=== PATIENT | male | born 1995 | race Caucasian/White ===

== ENCOUNTER → 2016-12-06 | Outpatient (CLI) | payer OTHER ==
[~2016-12-06] MED LIST: IBUP-1050 PO; PSYL55.43 PO; WHEATAB2 PO
== END ==
LOC: C.LABSPEC 13:31
PROVIDERS: ATTEND Urology
DX: N20.0 Calculus of kidney (principal)

== ENCOUNTER → 2017-02-20 | Outpatient (CLI) | payer OTHER ==
--- NOTE | 2017-02-20 09:34 | DIAGNOSTIC IMAGING REPORT ---
KUB CLINICAL HISTORY: Nephrolithiasis. FINDINGS: 2 AP supine abdominal radiographs are correlated with abdominal CT dated 09/08/2015. There is a nonobstructed abdominal bowel gas pattern. There are at least 3 small nonobstructing left renal calculi which measure up to 3 mm. No right renal calculi are identified and there is no radiographic evidence of ureteral stone. The bony structures appear intact. IMPRESSION: Small nonobstructing left renal calculi as above. Electronically signed by: Homar Love M.D. 02/20/2017 9:33 AM Dictated Date/Time: 02/20/2017 9:31 AM
== END | disposition home or self-care (01) ==
LOC: C.RAD 09:05
PROVIDERS: ATTEND Urology
DX: N20.0 Calculus of kidney (principal)

== ENCOUNTER → 2017-03-15 | Outpatient (CLI) | payer OTHER ==
[2017-03-15 13:38] LABS: BLOOD UREA NITROGEN 9 mg/dl (7-18); BUN/CREATININE RATIO 8.8 (10-20); CALCIUM 9.5 mg/dl (8.5-10.1); CARBON DIOXIDE 28 mmol/L (21-32); CHLORIDE 106 mmol/L (98-107); CREATININE 0.98 mg/dl (0.60-1.40); GLUCOSE 88 mg/dl (70-99); PHOSPHORUS 2.8 mg/dl (2.5-4.9); POTASSIUM 3.9 mmol/L (3.5-5.1); SODIUM 139 mmol/L (136-145); URIC ACID 4.3 mg/dl (2.6-7.2)
== END | disposition home or self-care (01) ==
LOC: C.LAB1850 11:28
PROVIDERS: ATTEND Internal Medicine Nephrology
DX: N20.0 Calculus of kidney (principal); E55.9 Vitamin D deficiency, unspecified

== ENCOUNTER → 2017-08-14 | Outpatient (CLI) | payer OTHER ==
--- NOTE | 2017-08-14 13:53 | DIAGNOSTIC IMAGING REPORT ---
KUB CLINICAL HISTORY: N20.0 Nephrolithiasis COMPARISON STUDY: 02/20/2017 FINDINGS: The bowel gas pattern is unremarkable. The renal shadows are partially obscured by overlying bowel gas and fecal material. Tiny bilateral intrarenal calculi are suspected. There are no calcifications suspicious for ureteral calculi. IMPRESSION: 1. No evidence of pathologic bowel dilatation 2. Bilateral nephrolithiasis Electronically signed by: Phil Gonzalez M.D. 08/14/2017 1:52 PM Dictated Date/Time: 08/14/2017 1:51 PM
== END | disposition home or self-care (01) ==
LOC: C.RAD 13:27
PROVIDERS: ATTEND Urology
DX: N20.0 Calculus of kidney (principal)

== ENCOUNTER 2019-06-20 16:30 | Inpatient (IN) ==
[2019-06-20] MEDS ORDERED: SODIUM CHLORIDE 0.9% 1000ML 1,000 ML IV ONE (16:41)
[2019-06-20] MEDS ORDERED: KETOROLAC TROMETHAMINE 15 MG/ML VIAL IV STA ×2 (16:41→17:30)
[2019-06-20] MEDS ORDERED: ONDANSETRON INJ 2 MG/ML 2 ML VIAL IV STA (16:41)
[2019-06-20 17:07] LABS: Basophils # (auto) 0.03 K/uL (0-0.2); Basophils % (auto) 0.2 %; Eosinophils # (auto) 0.01 K/uL (0-0.5); Eosinophils % (auto) 0.1 %; Hematocrit (blood only) 41.9 % (42-52); Immature Granulocytes # (auto) 0.04 K/uL (0.00-0.02); Immature Granulocytes % (auto) 0.3 %; Lymphocytes % (auto) 10.2 %; Mean Corpuscular Hemoglobin 30.5 pg (25-34); Mean Corpuscular Hgb Conc 35.8 g/dL (32-36); Mean Corpuscular Volume 85.3 fL (80-100); Mean Platelet Volume 8.8 fL (7.4-10.4); Monocytes # (auto) 0.37 K/uL (0.11-0.59); Monocytes % (auto) 2.4 %; Neutrophils # (auto) 13.67 K/uL (1.4-6.5); Neutrophils % (auto) 86.8 %; Platelet Count 305 K/uL (130-400); RDW Standard Deviation 40.7 fL (36.4-46.3); Red Blood Count 4.91 M/uL (4.7-6.1); White Blood Count 15.72 K/uL (4.8-10.8)
[2019-06-20 17:12] LABS: Appearance Urine Turbid (Clear); Bacteria Urine Automated Negative (Negative); Blood Urine 3+ (Negative); Epithelial Cell Urine Auto 20-30 /lpf (0-5); Glucose Urine UA Negative (Negative); Ketones Urine Trace (Negative); Leukocyte Esterase Urine 1+ (Negative); Nitrite Urine Negative (Negative); Protein Urine 2+ (Negative); RBC Urine Automated >30 /hpf (0-4); Specific Gravity Urine 1.029 (1.000-1.030); Urobilinogen Urine Negative (Negative)
[2019-06-20 17:13] LABS: Color Urine Dark Yellow
[2019-06-20 17:15] LABS: Bilirubin Urine Negative (Negative); Ictotest Urine Negative (Negative)
--- NOTE | 2019-06-20 17:35 | CT Scan Report ---
CT OF THE ABDOMEN AND PELVIS WITHOUT CONTRAST CLINICAL HISTORY: Right flank pain. Evaluate for stone. COMPARISON STUDY: CT of the abdomen and pelvis September 08, 2015. KUB September 20, 2018. TECHNIQUE: Axial images of the abdomen and pelvis were obtained without IV contrast. Images were revi ewed in the axial, sagittal, and coronal planes. Automated exposure control was utilized for the farrukh dy. A dose lowering technique was utilized adhering to the principles of ALARA. FINDINGS: Lung bases are unremarkable. A 7 mm x 5 mm proximal right ureteral calculus results in mild to moderate right hydronephrosis. A few punctate right renal calculi are noted. 2 calculi within the lower pole of the left kidney measure up to 6 mm. There are no left ureteral calculi. Evaluation of the remainder of the abdomen and pelvis is suboptimal on this unenhanced examination. The liver, sple en, adrenal glands and pancreas are normal. There is no evidence for a bowel obstruction. The appendi x is at the upper limits of normal for caliber and contains hyperdense material. However, there is no evidence for acute appendicitis. No lymphadenopathy is present. No suspicious osseous lesions are no hermann. 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 IMPRESSION: 1. 7 mm x 5 mm proximal right ureteral calculus which results in mild to moderate right hydronephrosi s. 2. Punctate right renal calculi. Two left renal calculi measuring up to 6 mm. Electronically signed by: Abad Acosta M.D. 06/20/2019 5:34 PM
[2019-06-20 17:41] LABS: Albumin Level 4.5 gm/dl (3.4-5.0); BUN Creatinine Ratio 12.7 (10-20); Bilirubin Direct 0.1 mg/dl (0-0.2); Calcium 9.4 mg/dl (8.5-10.1); Creatinine Clr Calc Pharmacy 89.3 ml/min; Est GFR (African American) 107.6; Est GFR (Non-African American) 92.8; Potassium 3.7 mmol/L (3.5-5.1)
[2019-06-20] MEDS ORDERED: MoRPHine SULFATE 4 MG/ML 1 ML CARP\\VIAL IV STA (17:42)
[2019-06-20 17:43] LABS: Bilirubin,Total 0.5 mg/dl (0.2-1); Total Protein 8.4 gm/dl (6.4-8.2)
--- NOTE | 2019-06-20 17:59 | Emergency Department Note ---
Entered by Dinorah Brian acting as a scribe for History of Present Illness General Chief complaint: Flank Pain Stated complaint: ABDOMINAL PAIN, RIGHT SIDE Time Seen by Provider: 06/20/19 16:37 History of Present Illness Provider complaint: right sided flank pain Onset (ago): hour(s) 2 Location: abdomen (flank) and right Radiation: back Pain Consistency: + other (episode) Maximum Pain Intensity: 8 Associated symptoms: + denies other symptoms (hematuria, dysuria) and + other (initially thought the pain was from gas, but the pain has worsened exponentially, dizzy, history of left sided kidney stones); no nausea/vomiting The patient is a 24 year old male who presents to the ED with complaints of an episodes of right sided flank pain that started 2 hours ago. The patient states that his pain radiates slightly to his back. The patient states that he initially thought the pain was from gas, but when the pain persisted and wor sened he decided to come to the ED. The patient states that he also feels dizzy. Per father, the patient has a history of left sided kidney stones. The patient denies nausea, vomiting hematuria and dysuria. Home Medications Home Medications Medication Instructions Recorded Confirmed Type potassium citrate 15 meq PO QAM 06/20/19 06/20/19 History Allergies Allergy/AdvReac Type Severity Reaction Status Date / Time No Known Allergies Allergy Unverified 06/20/19 17:48 Past Med/Surg History Social History Preferred Language: German Communication Ability: Effective Bid Writer Required: No Beliefs That Will Affect Care: None Current Living Situation: Parent Feels Safe at Home: Yes Smoking Status: Never smoker Second Hand Exposure: No ; Hx Alcohol Use: No Hx Substance Use: No Review of Systems See HPI for pertinent positives & negatives. and A total of 10 systems reviewed and were otherwise negative Physical Exam Vital Signs Vital Signs - 24 hr 06/20/19 16:32 06/20/19 17:51 Temperature 36.7 C Temperature Source Oral Sepsis Recent Fever Within 48 Hours No Sepsis New/Unexplained Change in Mental Status No Sepsis Action Taken by Nursing No Action Required Pulse Rate 86 Pulse Rate [Finger] 74 Pulse Rhythm [Finger] Regular Pulse Strength [Finger] Normal Respiratory Rate 20 16 Respiratory Effort / Characteristics Non-Labored Spontaneous Respiratory Depth Normal Respiratory Pattern Regular Blood Pressure 112/70 Blood Pressure [Right Arm] 124/69 Blood Pressure Mean 84 Blood Pressure Mean [Right Arm] 87 Blood Pressure Position [Right Arm] Lying Pulse Oximetry 97 98 Oxygen Delivery Method Room Air Room Air GENERAL: He is oriented to person, place, and time. He appears well-developed and well-nourished. He does not appear distressed. HENT: Exam performed. - Head: Normocephalic and atraumatic. - Right Ear: External ear normal. No mastoid tenderness. - Left Ear: External ear normal. No mastoid tenderness. - Mouth/Throat: The oropharynx is clear and moist. No trismus in the jaw. No dental abscesses or uvula swelling. No oropharyngeal exudate or tonsillar abscesses. EYES: Conjunctivae and EOM are normal. Pupils are equal, round, and reactive to light. Right eye exhibits no discharge. Left eye exhibits no discharge. No scleral icterus. NECK: Normal range of motion. Neck supple. No JVD present. No spinous process tenderness present. No carotid bruit present. No rigidity. No tracheal deviation and normal range of motion present. No Brudzinski's sign and no Kernig's sign noted. CV: Normal rate, regular rhythm, normal heart sounds and intact distal pulses. There is no peripheral edema. Palpable radial pulses bue. PULM/CHEST: Effort normal and breath sounds normal. No respiratory distress. No stridor. He has no wheezes. He has no rales. - Chest Wall: He exhibits no tenderness. ABD: The abdomen is soft. Bowel sounds are normal. He has no distension. No mass is present. RLQ tenderness. There is no rebound, no guarding, no Correia's sign and no tenderness at McBurney's point. Rovsig negative. MUSC/SKEL: Normal range of motion. There is no peripheral edema, tenderness or deformity. Right sided CVA tenderness. LYMPH: No cervical adenopathy. NEURO: He is alert and oriented to person, place, and time. He has normal strength. No cranial nerve deficit or sensory deficit. Coordination and gait normal. GCS eye subscore is 4. GCS verbal subscore is 5. GCS motor subscore is 6. Cerebellar tests wnl. SKIN: Skin is warm and dry. He is not diaphoretic. PSYCH: He has a normal mood and affect. Behavior is normal. Judgment and thought content normal. Course 1638: Past medical records reviewed. The patient was evaluated in room A04B. A complete history and physical exam was performed. 1756: Vital signs stable. Patient still having pain despite 2 doses of Toradol, will give Morphine. Imaging found 7x 5 mm right sided kidney stone. Labs show mild leukocytosis. Urine sample is contaminated, does not have any nitrites or bacteria present though. Dr. Bates agrees to admit the patient for pain control and stent placement. Patient will be admitted to Dr. Foster for further evaluation. Consultations Consultation #1: I discussed the patient's case with Dr. Bates- Urology. He is agreeable for the plan for admission. Time: 17:44 Consultation #2: I discussed the patient's case with Dr. Foster- [facility] Hospitalist. She will evaluate the patient for further management. Time: 17:55 Administered Medications Discontinued Medications Sodium Chloride (Nss 1000ml) 1,000 mls @ 999 mls/hr IV .Q1H1M ONE Stop: 06/20/19 17:41 Last Infusion: 06/20/19 17:50 Dose: 0 mls/hr Documented by: [id number] Admin: 06/20/19 16:50 Dose: 999 mls/hr Documented by: [id number] Ketorolac Tromethamine (Toradol) 15 mg IV NOW STA Stop: 06/20/19 16:42 Last Admin: 06/20/19 16:50 Dose: 15 mg Documented by: [id number] Ketorolac Tromethamine (Toradol) 15 mg IV NOW STA Stop: 06/20/19 17:31 Last Admin: 06/20/19 17:37 Dose: 15 mg Documented by: [id number] Morphine Sulfate (Morphine Sulfate) 4 mg IV NOW STA Stop: 06/20/19 17:43 Last Admin: 06/20/19 17:50 Dose: 4 mg Documented by: [id number] Ondansetron HCl (Zofran) 4 mg IV NOW STA Stop: 06/20/19 16:42 Last Admin: 06/20/19 16:50 Dose: 4 mg Documented by: [id number] Medical Decision Making Medical Records Attestation: I reviewed the patient's medical records. Home Medications Current Medication List: was personally reviewed by me Laboratory Data Attestation: I reviewed the patient's lab results. Result diagrams: 06/20/19 16:47 06/20/19 16:47 Lab Results 06/20/19 06/20/19 06/20/19 Range/Units 16:45 16:47 16:47 WBC 15.72 H (4.8-10.8) K/uL RBC 4.91 (4.7-6.1) M/uL Hgb 15.0 (14.0-18.0) g/dL Hct 41.9 L (42-52) % MCV 85.3 (80-100) fL MCH 30.5 (25-34) pg MCHC 35.8 (32-36) g/dL RDW Std Deviation 40.7 (36.4-46.3) fL RDW Coeff of Power 13.0 (11.5-14.5) % Plt Count 305 (130-400) K/uL MPV 8.8 (7.4-10.4) fL Immature Gran % (Auto) 0.3 % Neut % (Auto) 86.8 % Lymph % (Auto) 10.2 % Alfalfa % (Auto) 2.4 % Eos % (Auto) 0.1 % Baso % (Auto) 0.2 % Immature Gran # (Auto) 0.04 H (0.00-0.02) K/uL Neut # (Auto) 13.67 H (1.4-6.5) K/uL Lymph # (Auto) 1.60 (1.2-3.4) K/uL Alfalfa # (Auto) 0.37 (0.11-0.59) K/uL Eos # (Auto) 0.01 (0-0.5) K/uL Baso # (Auto) 0.03 (0-0.2) K/uL Sodium 137 (136-145) mmol/L Potassium 3.7 (3.5-5.1) mmol/L Chloride 106 (98-107) mmol/L Carbon Dioxide 27 (21-32) mmol/L Anion Gap 4.0 (3-11) BUN 14 (7-18) mg/dl Creatinine 1.10 (0.6-1.4) mg/dl Est Cr Clr Drug Dosing 89.3 ml/min Est GFR ( Amer) 107.6 Est GFR (Non-Af Amer) 92.8 BUN/Creatinine Ratio 12.7 (10-20) Glucose 109 H (70-99) mg/dl Calcium 9.4 (8.5-10.1) mg/dl Total Bilirubin 0.5 (0.2-1) mg/dl Direct Bilirubin 0.1 (0-0.2) mg/dl AST 13 L (15-37) U/L ALT 21 (12-78) U/L Alkaline Phosphatase 52 (45-117) U/L Total Protein 8.4 H (6.4-8.2) gm/dl Albumin 4.5 (3.4-5.0) gm/dl Lipase 110 (73-393) U/L Urine Color Dark Yellow Urine Appearance Turbid A (Clear) Urine pH 6.0 (4.5-7.5) Ur Specific [place] 1.029 (1.000-1.030) Urine Protein 2+ H (Negative) Urine Glucose (UA) Negative (Negative) Urine Ketones Trace H (Negative) Urine Blood 3+ H (Negative) Urine Nitrite Negative (Negative) Urine Bilirubin Negative (Negative) Urine Urobilinogen Negative (Negative) Ur Leukocyte Esterase 1+ H (Negative) Urine WBC (Auto) 5-10 H (0-5) /hpf Urine RBC (Auto) >30 H (0-4) /hpf U Hyaline Cast (Auto) 1-5 (0-5) /lpf U Epithel Cells (Auto) 20-30 H (0-5) /lpf Urine Bacteria (Auto) Negative (Negative) Imaging Data Radiologist's Impression: Radiology results as stated below per my review and the radiologist's interpretation: CT OF THE ABDOMEN AND PELVIS WITHOUT CONTRAST CLINICAL HISTORY: Right flank pain. Evaluate for stone. COMPARISON STUDY: CT of the abdomen and pelvis September 08, 2015. KUB September 20, 2018. TECHNIQUE: Axial images of the abdomen and pelvis were obtained without IV contrast. Images were reviewed in the axial, sagittal, and coronal planes. Automated exposure control was utilized for the study. A dose lowering technique was utilized adhering to the principles of ALARA. FINDINGS: Lung bases are unremarkable. A 7 mm x 5 mm proximal right ureteral calculus results in mild to moderate right hydronephrosis. A few punctate right renal calculi are noted. 2 calculi within the lower pole of the left kidney measure up to 6 mm. There are no left ureteral calculi. Evaluation of the ruperto barbie of the abdomen and pelvis is suboptimal on this unenhanced examination. The liver, spleen, adrenal glands and pancreas are normal. There is no evidence for a bowel obstruction. The appendix is at the upper limits of normal for caliber and contains hyperdense material. However, there is no evidence for acute appendicitis. No lymphadenopathy is present. No suspicious osseous lesions are noted. 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 IMPRESSION: 1. 7 mm x 5 mm proximal right ureteral calculus which results in mild to moderate right hydronephrosis. 2. Punctate right renal calculi. Two left renal calculi measuring up to 6 mm. Electronically signed by: Abad Acosta M.D. 06/20/2019 5:34 PM Blood Pressure Blood Pressure Findings: Elevated blood pressure Blood Pressure Disposition: further management by hospitalist PENG Narrative Vital signs stable. Patient still having pain despite 2 doses of Toradol, will give Morphine. Imaging found 7x 5 mm right sided kidney stone. Labs show mild leukocytosis. Urine sample is contaminated, does not have any nitrites or bacteria present though. Dr. Bates agrees to admit the patient for pain control and stent placement. Patient will be admitted to Dr. Foster for further evaluation. Impression & Plan Kidney stone on right side, Hydroureteronephrosis Discharge Plan Visit Data Chief Complaint: Flank Pain Stated Complaint: ABDOMINAL PAIN, RIGHT SIDE ED Provider: Vince Ceron Discharge Problem: Kidney stone on right side, Hydroureteronephrosis Patient Disposition: Being Evaluated by Hospitalist Forms Stand Alone Forms: My [facility], Important Visit Information Prescriptions Prescriptions: No Action potassium citrate 15 mEq tablet extended release 15 meq PO QAM RF: 0 Referrals Referrals: Clark Guaman DO [Primary Care Provider] - The scribe's documentation has been prepared under my direction and personally reviewed by me in its entirety. I confirm that the note above accurately reflects all work, treatment, procedures, and medical decision making performed by me.
--- NOTE | 2019-06-20 18:19 | History & Physical Report ---
Date of Service June 20, 2019 Assessment & Plan (1) Kidney stone on right side: Admit to PCU on telemetry Vital signs every 4 hours IV fluid hydration with normal saline 125 cc/h Pain management for proximal ureteral calculus Started ceftriaxone 1 g IV every 24 hours for urinary tract infection DVT prophylaxis with ambulation 3 times daily and SCDs and teds Due to possibility that patient may have stent placed if this calculus does not pass Consult urology Full code Present on Admission?: Yes (2) Hydroureteronephrosis: As above Present on Admission?: Yes History of Present Illness Chief Complaint: Right flank pain Primary Care Provider: Clark Guaman DO Patient is a 24 years old male with past medical history of spinning bifid syndrome presents to the emergency room with a complaint of right flank pain that started 2 hours ago. Patient states that his pain radiates slightly to his back. Patient states that he had in the past history of kidney stones. Patient reports that nothing helps his pain and in the beginning he was thinking that he has some pain caused by the gas in his bowel but then he realized that his urine was pink as well and he started to realize that this could be a kidney stone. Patient denies fever, chills, chest pain, shortness of breath, frequency, urgency. There is small amount amount of blood in patient's urine. Patient also said that he has some burning sensation on urination. Labs are reviewed which shows a white blood cell count of 15.72, hemoglobin 15 hematocrit 41.9, platelets of 305, sodium 137, potassium 3.7, chloride 106, BUN 14, creatinine 1.1, GFR 92.8, calcium 9.4, AST 13, ALT 21, alkaline phosphatase 52 albumin 4.5 lipase 110. Urine is positive for turbid appearance. There is 3+ blood in urine, leukocyte esterase 1+, WBC 5-10, RBC over 30, 20-30 epithelial cells negative for bacteria. CT abdomen pelvis shows 7 mm x 5 mm proximal right ureteral calculus with mild to moderate hydronephrosis. A few punctuate right renal calculi are noted. 2 calculi within the lower pole of the left kidney measuring up to 6 mm. Was made to admit patient to PCU telemetry for further evaluation of urolithiasis and treatment. Allergies Allergy/AdvReac Type Severity Reaction Status Date / Time No Known Allergies Allergy Unverified 06/20/19 17:48 Home Medications Home Medications Medication Instructions Recorded Confirmed Type potassium citrate 15 meq PO QAM 06/20/19 06/20/19 History Past Med/Surg History Medical History Anxiety Chronic headache Constipation Kidney stones Osteoarthritis Seasonal allergies Seizure QUESTIONABLE SEIZURE AFTER RECEIVING ANESTHESIA FOR WISDOM TOOTH EXTRACTION PER MOM? PREVIOUS SEIZURES OCCURRED DURING CHILDHOOD. NO MEDS. USED TO FOLLOW [facility] [place] Spina bifida NO SURGERY - NO PHYSICAL LIMITATIONS Surgical History History of anesthesia reaction QUESTIONABLE SEIZURE ACTIVITY AFTER RECEIVING ANESTHESIA FOR WISDOM TOOTH EXTRACTION PER MOM? MOM REPORTS EYES ROLLED TO BACK OF HIS HEAD/UNRESPONSIVE EPISODE AFTER COMING OUT OF ANESTHESIA. History of surgery on arm LEFT History of tooth extraction Family History Father Family history of reaction to anesthesia PONV Social History Preferred Language: Tamaz[place] Communication Ability: Effective Litigation Claim Representative Required: No Beliefs That Will Affect Care: None Current Living Situation: Parent Feels Safe at Home: Yes Smoking Status: Never smoker Second Hand Exposure: No ; Hx Alcohol Use: No Hx Substance Use: No Review of Systems Review of Systems: All systems reviewed & are unremarkable except as noted in HPI & below Physical Exam Constitutional: WD/WN, vitals as above well developed Eyes: PERRL, conjunctivae normal, anicteric sclerae ENMT: external ear and nose normal, oropharynx normal Neck: trachea midline, no thyromegaly Respiratory: normal respiratory effort, lungs clear to auscultation Cardiovascular: RRR, no murmur, no edema Gastrointestinal (Abdomen): Inspection/Auscultation: abdomen normal to inspection Right flank pain and tenderness on percussion and palpation Musculoskeletal: no cyanosis or clubbing, extremities motor strength 5/5 Skin: no rashes, warm and dry Neurologic: patellar DTR's 2+ bilat, sensation intact Psychiatric: A+Ox3, euthymic affect Lymphatic: no cervical or axillary lymphadenopathy Results & Data Vital Signs (Past 12 Hours) Vital Signs Temp Pulse Pulse Resp BP BP Pulse Ox 06/20/19 17:51 74 16 124/69 98 06/20/19 16:32 36.7 C 86 20 112/70 97 Code Status & VTE Plan Code Status Full code VTE Prophylaxis Plan VTE Prophylaxis will be ordered: No PG Care Time/CCT Total # of Minutes Spent Total Time Spent with Patient: Total time spent is greater than 50% in coordination of care (as documented) at patient's floor/unit and/or counseling patient:
[2019-06-20] MEDS ORDERED: POLYETHYLENE (MIRALAX) 17 GM PACK PO PRN (19:30)
[2019-06-20] MEDS ORDERED: KETOROLAC TROMETHAMINE 15 MG/ML VIAL IV PRN (19:30)
[2019-06-20] MEDS ORDERED: ONDANSETRON INJ 2 MG/ML 2 ML VIAL IV PRN (19:30)
[2019-06-20] MEDS ORDERED: ALUMINUM/MAGNESIUM SUSP 30 ML UDC PO PRN (19:30)
[2019-06-20] MEDS ORDERED: ACETAMINOPHEN 325 MG TAB PO PRN (19:30)
[2019-06-20] MEDS ORDERED: MAGNESIUM HYDROXIDE SUSP 30 ML UDC PO PRN (19:30)
[2019-06-20] MEDS ORDERED: OXYCODONE/ACETAMINOPHEN 5mg/325mg TAB PO PRN (19:30)
[2019-06-20] MEDS: SODIUM CHLORIDE 0.9% 1000ML 1,000 ML IV SCH (20:27)
[2019-06-20] MEDS ORDERED: cefTRIAXone SODIUM 1,000 MG in DEXTROSE 5% 50 ML IV SCH (21:00)
--- NOTE | 2019-06-21 01:43 | Urology Consultation ---
Date of Consultation June 21, 2019 Assessment & Plan (1) Kidney stone on right side: A/P 24-year-old male with a right proximal ureteral stone and colicky pain, currently improved. Findings reviewed with patient. If he is symptomatically improved we may be able to avoid acute surgical intervention. We will order a KUB for later this morning to check on stone progress and monitor symptoms. Should the patient's stone be making good progress with adequate pain control or if it has fallen back into the kidney would provide a p.o. diet and consider discharge home on oral pain medication with consideration of lithotripsy later in the week if necessary. Should the patient continue to have poorly controlled colicky pain on the right-hand side will consider cystoscopy, right retrograde pyelography and right ureteral stent placement to decompress his kidney. Patient and mother vocalized understanding of the treatment plan, queries were answered. N.p.o. for now. Thank you for allowing us to participate in this patient's acute care. Please contact our service with any questions or concerns. (2) Hydroureteronephrosis: History of Present Illness Reason for Consultation: Right proximal ureteral stone with colic Attending Physician: Orion Foster MD History of Present Illness 24-year-old male, known to our service, admitted due to right-sided flank pain from a proximal ureteral stone noted on CT scan imaging. Patient is resting comfortably in bed with his mother in the room. He reports he was in his usual state of health until he developed acute right flank pain and presented to the emergency room. Patient has been followed by Dr. Escobar as an outpatient and passed numerous stones without the need for surgical intervention. Per his report when lithotripsy had been considered in the past the stones had passed spontaneously obviating the need for intervention. He denies previous stent placement. He currently reports that his pain is improved after parenteral pain medication. He denies stone passage or collection since his admission. Inpatient and outpatient notes are reviewed. Urology consultation is requested to assist with the patient's acute care. CT scan images were personally reviewed demonstrating 2 left nonobstructive renal stones and a right proximal ureteral calculus. Allergies Allergy/AdvReac Type Severity Reaction Status Date / Time No Known Allergies Allergy Unverified 06/20/19 17:48 Home Medications Home Medications Medication Instructions Recorded Confirmed Type potassium citrate 15 meq PO QAM 06/20/19 06/20/19 History Patient History Medical History Anxiety Chronic headache Constipation Kidney stones Osteoarthritis Seasonal allergies Seizure QUESTIONABLE SEIZURE AFTER RECEIVING ANESTHESIA FOR WISDOM TOOTH EXTRACTION PER MOM? PREVIOUS SEIZURES OCCURRED DURING CHILDHOOD. NO MEDS. USED TO FOLLOW [facility] [place] Spina bifida NO SURGERY - NO PHYSICAL LIMITATIONS Surgical History History of anesthesia reaction QUESTIONABLE SEIZURE ACTIVITY AFTER RECEIVING ANESTHESIA FOR WISDOM TOOTH EXTRACTION PER MOM? MOM REPORTS EYES ROLLED TO BACK OF HIS HEAD/UNRESPONSIVE EPISODE AFTER COMING OUT OF ANESTHESIA. History of surgery on arm LEFT History of tooth extraction Family History Father Family history of reaction to anesthesia PONV Social History Preferred Language: Polish Communication Ability: Effective Communication Studies Professor Required: No Beliefs That Will Affect Care: None Current Living Situation: Significant Other Current Living Situation Comment: Girlfriend Feels Safe at Home: Yes Smoking Status: Never smoker Second Hand Exposure: No ; Hx Alcohol Use: No Hx Substance Use: No Review of Systems Constitutional: no fever and no chills Eyes: no diplopia Ear, Nose, Mouth, Throat: no ear trauma Respiratory: no hemoptysis Cardiovascular: no chest pain Gastrointestinal: + abdominal pain; no hematemesis Genitourinary: + flank pain Musculoskeletal: + back pain Integumentary: no acne and no boil Neurologic: no paralysis Psychiatric: no hopelessness Hematologic / Lymphatic: no easy bleeding Allergy / Immunological: no tongue swelling Physical Exam Constitutional: well developed and well nourished; no acute distress Eyes: eyes not dysmorphic ENMT: Ears: no external ear abnormality Neck: trachea midline; no anterior neck swelling Respiratory: no respiratory distress and does not use accessory muscles Cardiovascular: Vessels: radial pulses present Gastrointestinal (Abdomen): Inspection/Auscultation: abdomen not distended Percussion/Palpation: abdomen soft; abdomen nontender Musculoskeletal: Head/Neck/Chest: normocephalic and neck supple Skin: normal turgor Neurologic: awake; not obtunded Psychiatric: Orientation: oriented x 3 Lymphatic: no lymphadenopathy Results & Data Vital Signs (Past 12 Hours) Vital Signs Temp Pulse Pulse Pulse Resp BP BP 06/20/19 23:19 36.9 C 82 14 113/63 06/20/19 19:50 36.9 C 65 16 06/20/19 19:09 68 16 124/65 06/20/19 17:51 74 16 06/20/19 16:32 36.7 C 86 20 112/70 BP Pulse Ox 06/20/19 23:19 95 06/20/19 19:50 104/64 96 06/20/19 19:09 99 06/20/19 17:51 124/69 98 06/20/19 16:32 97 Laboratory Results Laboratory Results - last 48 hr 06/20/19 06/20/19 06/20/19 16:45 16:47 16:47 WBC 15.72 H RBC 4.91 Hgb 15.0 Hct 41.9 L MCV 85.3 MCH 30.5 MCHC 35.8 RDW Std Deviation 40.7 RDW Coeff of Power 13.0 Plt Count 305 MPV 8.8 Immature Gran % (Auto) 0.3 Neut % (Auto) 86.8 Lymph % (Auto) 10.2 [place] % (Auto) 2.4 Eos % (Auto) 0.1 Baso % (Auto) 0.2 Immature Gran # (Auto) 0.04 H Neut # (Auto) 13.67 H Lymph # (Auto) 1.60 [place] # (Auto) 0.37 Eos # (Auto) 0.01 Baso # (Auto) 0.03 Sodium 137 Potassium 3.7 Chloride 106 Carbon Dioxide 27 Anion Gap 4.0 BUN 14 Creatinine 1.10 Est Cr Clr Drug Dosing 89.3 Est GFR ( Amer) 107.6 Est GFR (Non-Af Amer) 92.8 BUN/Creatinine Ratio 12.7 Glucose 109 H Calcium 9.4 Total Bilirubin 0.5 Direct Bilirubin 0.1 AST 13 L ALT 21 Alkaline Phosphatase 52 Total Protein 8.4 H Albumin 4.5 Lipase 110 Urine Color Dark Yellow Urine Appearance Turbid A Urine pH 6.0 Ur Specific [place] 1.029 Urine Protein 2+ H Urine Glucose (UA) Negative Urine Ketones Trace H Urine Blood 3+ H Urine Nitrite Negative Urine Bilirubin Negative Urine Urobilinogen Negative Ur Leukocyte Esterase 1+ H Urine WBC (Auto) 5-10 H Urine RBC (Auto) >30 H U Hyaline Cast (Auto) 1-5 U Epithel Cells (Auto) 20-30 H Urine Bacteria (Auto) Negative PG Care Time/CCT Total # of Minutes Spent Total Time Spent with Patient: Total time spent is greater than 50% in coordination of care (as documented) at patient's floor/unit and/or counseling patient:
[2019-06-21] MEDS: SODIUM CHLORIDE 0.9% 1000ML 1,000 ML IV SCH ×2 (04:59→12:52)
[2019-06-21 05:13] LABS: Basophils # (auto) 0.05 K/uL (0-0.2); Basophils % (auto) 0.5 %; Eosinophils # (auto) 0.15 K/uL (0-0.5); Eosinophils % (auto) 1.5 %; Hematocrit (blood only) 37.3 % (42-52); Hemoglobin 12.8 g/dL (14.0-18.0); Immature Granulocytes # (auto) 0.02 K/uL (0.00-0.02); Immature Granulocytes % (auto) 0.2 %; Lymphocytes # (auto) 4.39 K/uL (1.2-3.4); Lymphocytes % (auto) 44.9 %; Mean Corpuscular Hemoglobin 29.8 pg (25-34); Mean Corpuscular Hgb Conc 34.3 g/dL (32-36); Mean Corpuscular Volume 86.7 fL (80-100); Mean Platelet Volume 8.5 fL (7.4-10.4); Monocytes % (auto) 9.2 %; Neutrophils # (auto) 4.27 K/uL (1.4-6.5); Neutrophils % (auto) 43.7 %; Platelet Count 241 K/uL (130-400); RDW Coefficient of Variation 13.3 % (11.5-14.5); RDW Standard Deviation 42.5 fL (36.4-46.3); White Blood Count 9.78 K/uL (4.8-10.8)
[2019-06-21 05:23] LABS: INR 1.1 (0.9-1.1); Partial Thromboplastin Ratio 0.9; Partial Thromboplastin Time 24.5 Seconds (21.0-31.0); Prothrombin Time 11.2 Seconds (9.0-12.0)
[2019-06-21 05:48] LABS: Albumin Level 3.1 gm/dl (3.4-5.0); BUN Creatinine Ratio 13.6 (10-20); Calcium 8.1 mg/dl (8.5-10.1); Creatinine Clr Calc Pharmacy 99.2 ml/min; Est GFR (African American) 122.2; Est GFR (Non-African American) 105.4
[2019-06-21 05:56] LABS: Bilirubin,Total 0.4 mg/dl (0.2-1); Total Protein 6.1 gm/dl (6.4-8.2)
[2019-06-21 08:09] VITALS: O2SAT 98
--- NOTE | 2019-06-21 08:30 | XRay Report ---
XR KUB/Abdomen 1 view CLINICAL HISTORY: stone nephrocalcinosis COMPARISON STUDY: CT 06/20/2019 FINDINGS: No change in the calcifications at the right ureteropelvic junction versus proximal right u reter. This is slightly proximal compared to its prior location and is immediately adjacent to the ri ght transverse process of L2. IMPRESSION: 1. One possibly 2 proximal right ureteral calculi at the right ureteral of the junction versus proxim al right ureter. 2. These appear to be slightly superior in location compared to the prior exam. The above report was generated using voice recognition software. It may contain grammatical, syntax or spelling errors. Electronically signed by: Marlo Montez M.D. 06/21/2019 8:29 AM
[2019-06-21] MEDS ORDERED: POTASSIUM CITRATE 10 MEQ TAB PO SCH (09:00)
--- NOTE | 2019-06-21 09:46 | Hospitalist Progress Note ---
Date of Service June 21, 2019 Assessment & Plan (1) Kidney stone on right side: * Admit to med/surg - patient with significant pmhx of nephrolithiasis. Follows Dr. Escobar outpatient. Calcium oxalate stones. * IVF NS@125cc/hr for hydration * Ceftriaxone for UTI - will need to transition to oral agent if plan to d/c today * Pain management * Urology Consult- appreciate input * CT Abd/pelvis 06/20 with 7mm x 5mm proximal R ureteral calciulu with mild-mod R hydronephrosis. Two L renal calculi measuring up to 6mm * KUB today with possibly 2 proximal R ureteral calculi at R ureteral of junction vs proximal R ureter. Slightly superior in location compared to prior exam. (2) Hydroureteronephrosis: * As above (3) Anxiety: * Per patient, chronic. Stable * No medications at this time (4) DVT prophylaxis: * SCDs, teds, ambulation Dispo: d/c this evening after seen by Urology Supervising Physician Co-Signing Physician Notes Please see my SUpervising Physician note on dc summary on same DOS Subjective Patient evaluated at bedside this morning with parents present. Patient states he is no longer having pain or hematuria. He states he has a history of calcium oxalate stones and has passed them on his own. He states he was moving this weekend and thinks thats what caused the stone to move initially. Repeat KUB today with slightly superior in location compared to prior imaging. Discussed possible discharge later this afternoon with outpatient lithotripsy vs inpatient intervention. Patient states he was told by Urology to ambulate and will be reassessed later this evening to see if they should proceed with intervention or discharge and follow-up outpatient. Denies fevers, chills, abdominal pain, n/v/d, chest pain, shortness of breath at this time. Review of Systems Constitutional: no fever and no chills Eyes: no diplopia and no discharge Ear, Nose, Mouth, Throat: + dizziness (yesterday) Respiratory: no cough and no dyspnea Cardiovascular: no chest pain, no palpitations and no edema Gastrointestinal: no abdominal pain, no nausea and no vomiting Genitourinary: no dysuria and no hematuria Musculoskeletal: no neck pain and no joint pain Integumentary: no rash and no lesions Neurologic: no restless legs and no headache(s) Psychiatric: + anxiety (no treatment) Physical Exam Constitutional: WD/WN, vitals as above Eyes: PERRL, conjunctivae normal, anicteric sclerae Neck: trachea midline, no thyromegaly Respiratory: normal respiratory effort, lungs clear to auscultation Cardiovascular: Rate/Rhythm: + bradycardic Heart Sounds: normal S1 and normal S2; no gallop, no murmur and no cardiac rub Gastrointestinal (Abdomen): normal bowel sounds, soft, nontender, no hepatosplenomegaly Musculoskeletal: no cyanosis or clubbing, extremities motor strength 5/5 Skin: no rashes, warm and dry Psychiatric: A+Ox3, euthymic affect Genitourinary: no CVA tenderness Results & Data Vital Signs (Past 12 Hours) Vital Signs Temp Pulse Resp BP Pulse Ox 06/21/19 07:30 36.6 C 52 L 16 106/65 98 06/20/19 23:19 36.9 C 82 14 113/63 95 Laboratory Results 06/21/19 06/21/19 06/21/19 Range/Units 04:54 04:54 04:54 WBC 9.78 (4.8-10.8) K/uL RBC 4.30 L (4.7-6.1) M/uL Hgb 12.8 L (14.0-18.0) g/dL Hct 37.3 L (42-52) % MCV 86.7 (80-100) fL MCH 29.8 (25-34) pg MCHC 34.3 (32-36) g/dL RDW Std Deviation 42.5 (36.4-46.3) fL RDW Coeff of Power 13.3 (11.5-14.5) % Plt Count 241 (130-400) K/uL MPV 8.5 (7.4-10.4) fL Immature Gran % (Auto) 0.2 % Neut % (Auto) 43.7 % Lymph % (Auto) 44.9 % [place] % (Auto) 9.2 % Eos % (Auto) 1.5 % Baso % (Auto) 0.5 % Immature Gran # (Auto) 0.02 (0.00-0.02) K/uL Neut # (Auto) 4.27 (1.4-6.5) K/uL Lymph # (Auto) 4.39 H (1.2-3.4) K/uL [place] # (Auto) 0.90 H (0.11-0.59) K/uL Eos # (Auto) 0.15 (0-0.5) K/uL Baso # (Auto) 0.05 (0-0.2) K/uL PT 11.2 (9.0-12.0) Seconds INR 1.1 (0.9-1.1) APTT 24.5 (21.0-31.0) Seconds PTT Ratio 0.9 Sodium 141 (136-145) mmol/L Potassium 4.0 (3.5-5.1) mmol/L Chloride 111 H (98-107) mmol/L Carbon Dioxide 26 (21-32) mmol/L Anion Gap 4.0 (3-11) BUN 13 (7-18) mg/dl Creatinine 0.99 (0.6-1.4) mg/dl Est Cr Clr Drug Dosing 99.2 ml/min Est GFR ( Amer) 122.2 Est GFR (Non-Af Amer) 105.4 BUN/Creatinine Ratio 13.6 (10-20) Glucose 95 (70-99) mg/dl Calcium 8.1 L (8.5-10.1) mg/dl Total Bilirubin 0.4 (0.2-1) mg/dl Direct Bilirubin (0-0.2) mg/dl AST 8 L (15-37) U/L ALT 16 (12-78) U/L Alkaline Phosphatase 41 L (45-117) U/L Total Protein 6.1 L D (6.4-8.2) gm/dl Albumin 3.1 L (3.4-5.0) gm/dl Globulin 3.0 (2.5-4.0) gm/dl Albumin/Globulin Ratio 1.0 (0.9-2) Lipase (73-393) U/L Urine Color Urine Appearance (Clear) Urine pH (4.5-7.5) Ur Specific [place] (1.000-1.030) Urine Protein (Negative) Urine Glucose (UA) (Negative) Urine Ketones (Negative) Urine Blood (Negative) Urine Nitrite (Negative) Urine Bilirubin (Negative) Urine Urobilinogen (Negative) Ur Leukocyte Esterase (Negative) Urine WBC (Auto) (0-5) /hpf Urine RBC (Auto) (0-4) /hpf U Hyaline Cast (Auto) (0-5) /lpf U Epithel Cells (Auto) (0-5) /lpf Urine Bacteria (Auto) (Negative) 06/20/19 06/20/19 06/20/19 Range/Units 16:47 16:47 16:45 WBC 15.72 H (4.8-10.8) K/uL RBC 4.91 (4.7-6.1) M/uL Hgb 15.0 (14.0-18.0) g/dL Hct 41.9 L (42-52) % MCV 85.3 (80-100) fL MCH 30.5 (25-34) pg MCHC 35.8 (32-36) g/dL RDW Std Deviation 40.7 (36.4-46.3) fL RDW Coeff of Power 13.0 (11.5-14.5) % Plt Count 305 (130-400) K/uL MPV 8.8 (7.4-10.4) fL Immature Gran % (Auto) 0.3 % Neut % (Auto) 86.8 % Lymph % (Auto) 10.2 % [place] % (Auto) 2.4 % Eos % (Auto) 0.1 % Baso % (Auto) 0.2 % Immature Gran # (Auto) 0.04 H (0.00-0.02) K/uL Neut # (Auto) 13.67 H (1.4-6.5) K/uL Lymph # (Auto) 1.60 (1.2-3.4) K/uL [place] # (Auto) 0.37 (0.11-0.59) K/uL Eos # (Auto) 0.01 (0-0.5) K/uL Baso # (Auto) 0.03 (0-0.2) K/uL PT (9.0-12.0) Seconds INR (0.9-1.1) APTT (21.0-31.0) Seconds PTT Ratio Sodium 137 (136-145) mmol/L Potassium 3.7 (3.5-5.1) mmol/L Chloride 106 (98-107) mmol/L Carbon Dioxide 27 (21-32) mmol/L Anion Gap 4.0 (3-11) BUN 14 (7-18) mg/dl Creatinine 1.10 (0.6-1.4) mg/dl Est Cr Clr Drug Dosing 89.3 ml/min Est GFR ( Amer) 107.6 Est GFR (Non-Af Amer) 92.8 BUN/Creatinine Ratio 12.7 (10-20) Glucose 109 H (70-99) mg/dl Calcium 9.4 (8.5-10.1) mg/dl Total Bilirubin 0.5 (0.2-1) mg/dl Direct Bilirubin 0.1 (0-0.2) mg/dl AST 13 L (15-37) U/L ALT 21 (12-78) U/L Alkaline Phosphatase 52 (45-117) U/L Total Protein 8.4 H (6.4-8.2) gm/dl Albumin 4.5 (3.4-5.0) gm/dl Globulin (2.5-4.0) gm/dl Albumin/Globulin Ratio (0.9-2) Lipase 110 (73-393) U/L Urine Color Dark Yellow Urine Appearance Turbid A (Clear) Urine pH 6.0 (4.5-7.5) Ur Specific [place] 1.029 (1.000-1.030) Urine Protein 2+ H (Negative) Urine Glucose (UA) Negative (Negative) Urine Ketones Trace H (Negative) Urine Blood 3+ H (Negative) Urine Nitrite Negative (Negative) Urine Bilirubin Negative (Negative) Urine Urobilinogen Negative (Negative) Ur Leukocyte Esterase 1+ H (Negative) Urine WBC (Auto) 5-10 H (0-5) /hpf Urine RBC (Auto) >30 H (0-4) /hpf U Hyaline Cast (Auto) 1-5 (0-5) /lpf U Epithel Cells (Auto) 20-30 H (0-5) /lpf Urine Bacteria (Auto) Negative (Negative) Diagnostic Findings XR KUB/Abdomen 1 view 06/21/19 CLINICAL HISTORY: stone nephrocalcinosis COMPARISON STUDY: CT 06/20/2019 FINDINGS: No change in the calcifications at the right ureteropelvic junction versus proximal right ureter. This is slightly proximal compared to its prior location and is immediately adjacent to the right transverse process of L2. IMPRESSION: 1. One possibly 2 proximal right ureteral calculi at the right ureteral of the junction versus proximal right ureter. 2. These appear to be slightly superior in location compared to the prior exam. CT OF THE ABDOMEN AND PELVIS WITHOUT CONTRAST 06/20/19 CLINICAL HISTORY: Right flank pain. Evaluate for stone. COMPARISON STUDY: CT of the abdomen and pelvis September 08, 2015. KUB September 20, 2018. TECHNIQUE: Axial images of the abdomen and pelvis were obtained without IV contrast. Images were reviewed in the axial, sagittal, and coronal planes. Aut omated exposure control was utilized for the study. A dose lowering technique was utilized adhering to the principles of ALARA. FINDINGS: Lung bases are unremarkable. A 7 mm x 5 mm proximal right ureteral calculus results in mild to moderate right hydronephrosis. A few punctate right renal calculi are noted. 2 calculi within the lower pole of the left kidney measure up to 6 mm. There are no left ureteral calculi. Evaluation of the remainder of the abdomen and pelvis is suboptimal on this unenhanced examination. The liver, spleen, adrenal glands and pancreas are normal. There is no evidence for a bowel obstruction. The appendix is at the upper limits of normal for caliber and contains hyperdense material. However, there is no evidence for acute appendicitis. No lymphadenopathy is present. No suspicious osseous lesions are noted. 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 IMPRESSION: 1. 7 mm x 5 mm proximal right ureteral calculus which results in mild to moderate right hydronephrosis. 2. Punctate right renal calculi. Two left renal calculi measuring up to 6 mm. PG Care Time/CCT Total # of Minutes Spent Total Time Spent with Patient: Total time spent is greater than 50% in coordination of care (as documented) at patient's floor/unit and/or counseling patient:
--- NOTE | 2019-06-21 11:17 | Progress Note ---
Date of Service June 21, 2019 Subjective -Patient seen in follow-up rounds. He reports he has had a little recurrence of his pain since he was seen earlier this morning. He denies stone passage. Parents are present in the room. KUB images are reviewed -stones remain present, questionable mild proximal migration on the right-hand side. He remains n.p.o. Findings reviewed with patient and family. He is offered the option of right-sided stent placement today but this runs the risk of being associated with significant stent irritation which would likely be more uncomfortable than his current state. Seen that his stone is visible he is also offered outpatient lithotripsy later this week if available. He could be provided a p.o. diet for the day to ensure that he remains with controlled pain until later this evening and then be discharged to arrange for outpatient intervention. This would carry the advantage of avoiding the need for a stent acutely. If he were to return to the ER due to repeat colicky decompensation then a stronger indication for stent placement would be present. After discussion with family of risks and benefits of various forms of management they wish to try to go until later this week for outpatient intervention. We will provide a p.o. diet, recommend discharge home at dinnertime with p.o. pain medication if patient does well. Will arrange for outpatient intervention and follow-up. Patient and family vocalized good understanding of the treatment plan. Results & Data Vital Signs (Past 12 Hours) Vital Signs Temp Pulse Resp BP Pulse Ox 06/21/19 07:30 36.6 C 52 L 16 106/65 98 06/20/19 23:19 36.9 C 82 14 113/63 95 PG Care Time/CCT Total # of Minutes Spent Total Time Spent with Patient: Total time spent is greater than 50% in coordination of care (as documented) at patient's floor/unit and/or counseling patient:
[2019-06-21 15:06] VITALS: TEMP 98.2
--- NOTE | 2019-06-21 18:05 | Discharge Summary ---
Date of Service June 21, 2019 Admission HPI Per Admitting Provider Patient is a 24 years old male with past medical history of spinning bifid syndrome presents to the emergency room with a complaint of right flank pain that started 2 hours ago. Patient states that his pain radiates slightly to his back. Patient states that he had in the past history of kidney stones. Patient reports that nothing helps his pain and in the beginning he was thinking that he has some pain caused by the gas in his bowel but then he realized that his urine was pink as well and he started to realize that this could be a kidney stone. Patient denies fever, chills, chest pain, shortness of breath, frequency, urgency. There is small amount amount of blood in patient's urine. Patient also said that he has some burning sensation on urination. Labs are reviewed which shows a white blood cell count of 15.72, hemoglobin 15 hematocrit 41.9, platelets of 305, sodium 137, potassium 3.7, chloride 106, BUN 14, creatinine 1.1, GFR 92.8, calcium 9.4, AST 13, ALT 21, alkaline phosphatase 52 albumin 4.5 lipase 110. Urine is positive for turbid appearance. There is 3+ blood in urine, leukocyte esterase 1+, WBC 5-10, RBC over 30, 20-30 epithelial cells negative for bacteria. CT abdomen pelvis shows 7 mm x 5 mm proximal right ureteral calculus with mild to moderate hydronephrosis. A few punctuate right renal calculi are noted. 2 calculi within the lower pole of the left kidney measuring up to 6 mm. Was made to admit patient to PCU telemetry for further evaluation of urolithiasis and treatment. Admission Exam Per Admitting Provider Constitutional: WD/WN, vitals as above well developed Eyes: PERRL, conjunctivae normal, anicteric sclerae ENMT: external ear and nose normal, oropharynx normal Neck: trachea midline, no thyromegaly Respiratory: normal respiratory effort, lungs clear to auscultation Cardiovascular: RRR, no murmur, no edema Gastrointestinal (Abdomen): Inspection/Auscultation: abdomen normal to inspection Right flank pain and tenderness on percussion and palpation Musculoskeletal: no cyanosis or clubbing, extremities motor strength 5/5 Skin: no rashes, warm and dry Neurologic: patellar DTR's 2+ bilat, sensation intact Psychiatric: A+Ox3, euthymic affect Lymphatic: no cervical or axillary lymphadenopathy Principal Diagnosis Nephrolithiasis Discharge Exam Constitutional WD/WN, vitals as above Eyes PERRL, conjunctivae normal, anicteric sclerae Neck trachea midline, no thyromegaly Respiratory normal respiratory effort, lungs clear to auscultation Cardiovascular Rate/Rhythm: + bradycardic Heart Sounds: normal S1 and normal S2; no gallop, no murmur and no cardiac rub Gastrointestinal (Abdomen) normal bowel sounds, soft, nontender, no hepatosplenomegaly Musculoskeletal no cyanosis or clubbing, extremities motor strength 5/5 Skin no rashes, warm and dry Psychiatric A+Ox3, euthymic affect Genitourinary no CVA tenderness Discharge Data Allergies Allergy/AdvReac Type Severity Reaction Status Date / Time No Known Allergies Allergy Verified 06/22/19 16:23 Consultations 06/20/19 17:44 ED Decision to Admit Stat Ordered Studies 06/21/19 XR KUB/Abdomen 1 view CLINICAL HISTORY: stone nephrocalcinosis COMPARISON STUDY: CT 06/20/2019 FINDINGS: No change in the calcifications at the right ureteropelvic junction versus proximal right ureter. This is slightly proximal compared to its prior location and is immediately adjacent to the right transverse process of L2. IMPRESSION: 1. One possibly 2 proximal right ureteral calculi at the right ureteral of the junction versus proximal right ureter. 2. These appear to be slightly superior in location compared to the prior exam. 06/20/19 16:41 CT OF THE ABDOMEN AND PELVIS WITHOUT CONTRAST CLINICAL HISTORY: Right flank pain. Evaluate for stone. COMPARISON STUDY: CT of the abdomen and pelvis September 08, 2015. KUB September 20, 2018. TECHNIQUE: Axial images of the abdomen and pelvis were obtained without IV contrast. Images were reviewed in the axial, sagittal, and coronal planes. Automated exposure control was utilized for the study. A dose lowering haroldo hnique was utilized adhering to the principles of ALARA. FINDINGS: Lung bases are unremarkable. A 7 mm x 5 mm proximal right ureteral calculus results in mild to moderate right hydronephrosis. A few punctate right renal calculi are noted. 2 calculi within the lower pole of the left kidney measure up to 6 mm. There are no left ureteral calculi. Evaluation of the remainder of the abdomen and pelvis is suboptimal on this unenhanced examination. The liver, spleen, adrenal glands and pancreas are normal. There is no evidence for a bowel obstruction. The appendix is at the upper limits of normal for caliber and contains hyperdense material. However, there is no evidence for acute appendicitis. No lymphadenopathy is present. No suspicious osseous lesions are noted. 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 IMPRESSION: 1. 7 mm x 5 mm proximal right ureteral calculus which results in mild to moderate right hydronephrosis. 2. Punctate right renal calculi. Two left renal calculi measuring up to 6 mm. Hospital Course (1) Kidney stone on right side: * Admit to med/surg - patient with significant pmhx of nephrolithiasis. Follows with Dr. Escobar outpatient. Calcium oxalate stones. * CT Abd/pelvis 06/20 with 7mm x 5mm proximal R ureteral calculi with mild-mod R hydronephrosis. Two L renal calculi measuring up to 6mm. * Urology Consultation-- conservative management recommended as pain resolved, stone likely went back into the kidney * no evidence of UTI, sepsis, or renal failure * IVF @ 125cc/hr for hydration. Given dose of ceftriaxone. Pain management. Urology consult with conservative management. * Repeat KUB with possibly 2 proximal R ureteral calculi at R ureteral of junction vs proximal R ureter. Slightly superior in location compared to prior exam. * Follow-up with Urology this week for possible lithotripsy * given Rx for pain meds just in case has recurrence * continue potassium citrate tabs daily (2) Hydroureteronephrosis: * As above (3) Anxiety: * Per patient, chronic. Stable * No medications at this time (4) DVT prophylaxis: * SCDs, teds, ambulation Dispo-stable for dc to home Total Time Total Time Spent Total Time Spent (In Minutes): >30 min Discharge Plan Discharge Items Patient Disposition: Home - Self-Care Reason For Visit: NEPHROLITIASIS Discharge Diagnosis: Nephrolithiasis Activity: Resume your previous activity Activity Comment: As tolerated Non-emergency contact: Primary Care Provider Call non-emergency contact if: you have any medication questions, your pain is not controlled, your pain is worsening and you have a fever Follow-up/Referrals: Clark Guaman DO [Primary Care Provider] - Diet: Regular Addtl Attending Provider Instructions: You have been admitted for kidney stones. Repeat imaging from time of admission with possible proximal migration on right side. Please follow up with Dr. Bates this week for further evaluation for intervention going forward. He has sent a prescription electronically for pain medications to take as prescribed if needed. Please remember to stay well hydrated and drink lots of water. You may try drinking lemonade to help dissolve the stones as well. Please return to the emergency room if you experience worsening pain, fever, chills, or any other symptoms that are concerning for you. Pending Studies at Discharge: No Stand-Alone Forms: [facility], Smoking Cessation Medications and DC Order Prescriptions: New oxycodone-acetaminophen [Percocet] 5-325 mg Tablet 1 tab PO Q4H PRN (Reason: pain) Qty: 10 RF: 0 Continued potassium citrate 15 mEq tablet extended release 15 meq PO QAM RF: 0 Discharge Orders: Discharge Order (Routine); Ordered 06/21/19 Ordered By: Kraina Murphy Admission Data Admit Date/Time: 06/20/19 18:17 Attending Provider: Lizzy Dawn Admit Provider: Orion Foster Primary Care Provider: Clark Guaman Other Providers: Orion Foster Other Interventions: Discharge Summary Assessment (RN) Last Done: 06/21/19 18:31 DC Date/Time DO NOT enter until pt leaves facility: 06/21/19 18:45 Supervising Physician Co-Signing Physician Notes PA Supervision Note: I personally saw and examined the patient. I verified all mariee points and agree with CNIDA Murphy with the following exceptions and/or additions: DOing well, no pain, jose po. Afebrile, making urine VSS NAD, AAOx3 RRR no mgr CTAB no wcr ABd soft NT ND +BS Ext no edema or calf tenderness 24 yo male here with recurrent right sided ureterolithiasis, now resolved, likely stone migrated proximally into renal pelvis needs definitive stone management with Urology but not urgent at this point stable for dc
[2019-06-21 18:33] VITALS: BP 104/64; PULSE 65
== END 2019-06-21 18:45 | disposition home or self-care (01) | DRG 694 ==
LOC: ED 16:30 → SUATTDRO 18:17 → 3W 18:17